=== PATIENT | male | born 1950 | race Caucasian/White ===

== ENCOUNTER 2018-01-31 23:42 | Emergency (ER) | payer OTHER ==
[2018-01-31 23:46] VITALS: TEMP 97.6; BMI 31.5
[2018-01-31] MEDS ORDERED: XANAX PO STA (23:49)
[2018-01-31] MEDS ORDERED: CATAPRES PO STA (23:49)
--- NOTE | 2018-01-31 23:52 | ED.PDOC ---
General ED Provider: Dr. BLAKE ELDER Chief Complaint: Hypertension Stated Complaint: BP been elevated since noon, went above 200 systolic,so came for the evaluation Time Seen by Physician: 23:50 Mode of Arrival: Walk-In Information Source: Patient, Family Primary Care Provider: CLAUDETTE LARKIN Nursing and Triage Documentation Reviewed and Agree: Yes Reviewed sepsis parameters & appropriate labs ordered?: No System Inflammatory Response Syndrome: Not Applicable Sepsis Protocol: For patient's 13 years and over: Temp is 96.8 and below OR 101 and greater Pulse >90 BPM Resp >20/minute Acutely Altered Mental Status Are patient's symptoms suggestive of a new infection, such as: -Pneumonia -Skin, Soft Tissue -Endocarditis -UTI -Bone, Joint Infection -Implantable Device -Acute Abdominal Infection -Wound Infection -Meningitis -Blood Stream Catheter Infection -Unknown Cardiovascular Complaint Exam - Hypertension Complaint/Exam Symptoms Are: Still present Timing: Constant Aggravating: Reports: None Alleviating: Reports: None Associated Signs and Symptoms: Reports: Headache, Dizziness. Denies: Chest pain , Vision changes, Anxiety, Recent stress, Numbness, Tingling, Weakness, Short of air, Swelling Related History: Reports: Similar episode Related Surgical History: Reports: None Cardiac Risk Factors: Reports: Hypertension Recent Change in Medications: No A/V [place]: No Papilledema Present: No JVD Present: No Carotid Bruit Present: No Femoral Pulses Bounding: No Differential Diagnoses: Hypertension Quality Indicator For Non-Traumatic Chest Pain/Syncope: EKG Performed Review of Systems - Review Of Systems Constitutional: Reports: No symptoms Eyes: Reports: No symptoms Ears, Nose, Mouth, Throat: Reports: No symptoms Respiratory: Reports: No symptoms Cardiac: Reports: No symptoms GI: Reports: No symptoms : Reports: No symptoms Musculoskeletal: Reports: No symptoms Skin: Reports: No symptoms Neurological: Reports: Headache Endocrine: Reports: No symptoms Hematologic/Lymphatic: Reports: No symptoms All Other Systems: Reviewed and Negative Past Medical History - Past Medical History Previously Healthy: Yes Endocrine: Reports: None Cardiovascular: Reports: Hypertension (did not take medications) Respiratory: Reports: None Hematological: Reports: None Gastrointestinal: Reports: None Genitourinary: Reports: None Neuro/Psych: Reports: None Musculoskeletal: Reports: Back Pain Cancer: Reports: None - Surgical History General Surgical History: Reports: None - Family History Family History: Reports: None - Social History Smoking Status: Former smoker Hx Substance Use: No Alcohol Screening: None - Immunizations Tetanus Shot up to Date: Yes Physical Exam - Physical Exam Appearance: Well-appearing, No pain distress, Well-nourished Eyes: TEODORO, EOMI, Conjunctiva clear ENT: Ears normal, Nose normal, Oropharynx normal Respiratory: Airway patent, Breath sounds clear, Breath sounds equal, Respirations nonlabored Cardiovascular: RRR, Pulses normal, No rub, No murmur GI/: Soft, Nontender, No masses, Bowel sounds normal, No Organomegaly Musculoskeletal: Normal strength, ROM intact, No edema, No calf tenderness Skin: Warm, Dry, Normal color Neurological: Sensation intact, Motor intact, Reflexes intact, Cranial nerves intact, Alert, Oriented Psychiatric: Affect appropriate, Mood appropriate Critical Care Note - Critical Care Note Total Time (mins): 30 Course - Course Hematology/Chemistry: 02/01/18 00:00 02/01/18 00:00 Orders, Labs, Meds: Lab Review 02/01/18 02/01/18 02/01/18 00:00 00:00 00:00 WBC 6.76 RBC 4.06 L Hgb 12.8 L Hct 36.1 L MCV 88.9 MCH 31.5 H MCHC 35.5 H RDW Coeff of Genoveva 12.4 Plt Count 209 Immature Gran % (Auto) 0.3 Neut % (Auto) 69.4 Lymph % (Auto) 19.7 [place] % (Auto) 7.5 Eos % (Auto) 2.5 Baso % (Auto) 0.6 Immature Gran # (Auto) 0.0 Neut # (Auto) 4.7 Lymph # (Auto) 1.3 [place] # (Auto) 0.5 Eos # (Auto) 0.2 Baso # (Auto) 0.0 Sodium 138 Potassium 4.3 Chloride 101 Carbon Dioxide 23 Anion Gap 18.3 BUN 20 H Creatinine 1.04 Estimated GFR (MDRD) 71.00 BUN/Creatinine Ratio 19.23 Glucose 130 H Calcium 9.6 Total Bilirubin 0.5 AST 22 ALT 30 Alkaline Phosphatase 62 Total Creatine Kinase 193 CK-MB (CK-2) 3.4 CK-MB (CK-2) % 1.16198 Troponin I 0.0100 B-Natriuretic Peptide 75 Total Protein 7.2 Albumin 3.7 Globulin 3.5 Albumin/Globulin Ratio 1.06 Orders Category Date Time Status EKG-(ED ONLY) Stat CARDIO 01/31/18 23:49 Completed B-TYPE NATRIURETIC PEPTIDE Stat LAB 01/31/18 23:49 Completed CBC W/ AUTO DIFF Stat LAB 01/31/18 23:48 Completed COMPREHENSIVE METABOLIC PANEL Stat LAB 01/31/18 23:49 Completed CREATINE KINASE Stat LAB 01/31/18 23:49 Completed TROPONIN I Stat LAB 01/31/18 23:49 Completed Alprazolam [Xanax] MEDS 01/31/18 23:55 Discontinued 0.5 mg .ROUTE .STK-MED ONE Alprazolam [Xanax] MEDS 01/31/18 23:49 Discontinued 0.5 mg PO ONCE STA Clonidine HCl [Catapres] MEDS 01/31/18 23:49 Discontinued 0.2 mg PO ONCE STA CHEST, 2 VIEWS PA & LAT Stat RADS 01/31/18 23:[address] HEAD W/O CONTRAST Stat RADS 01/31/18 23:49 Completed Medications Discontinued Medications Generic Name Dose Route Start Last Admin Trade Name Kaliq PRN Reason Stop Dose Admin Alprazolam 0.5 mg 01/31/18 23:49 01/31/18 23:58 Xanax PO 01/31/18 23:50 Not Given ONCE STA Clonidine 0.2 mg 01/31/18 23:49 01/31/18 23:57 Catapres PO 01/31/18 23:50 0.2 mg ONCE STA Administration Vital Signs: Temp Pulse Resp BP Pulse Ox 02/01/18 00:52 52 L 13 152/86 H 94 L 02/01/18 00:21 51 L 14 178/86 H 95 01/31/18 23:43 97.6 F 65 14 205/93 H 95 ELSY Risk Score ELSY Risk Score: Risk Score Odds of by 30D 0 0.1 (0.1-0.2) 1 0.3 (0.2-0.3) 2 0.4 (0.3-0.5) 3 0.7 (0.6-0.9) 4 1.2 (1.0-1.5) 5 2.2 (1.9-2.6) 6 3.0 (2.5-3.6) 7 4.8 (3.8-6.1) Departure - Departure Time of Disposition: 23:53 Disposition: HOME SELF-CARE Discharge Problem: Hypertension Qualifiers: Hypertension type: essential hypertension Qualified Code(s): I10 - Essential ( primary) hypertension Instructions: Hypertension (ED) Condition: Stable Pt referred to PMD for follow-up: Yes IPMP verified?: No Additional Instructions: keep checking BP f/u with PMD in 1-2 days Allergies/Adverse Reactions: Allergies No Known Allergies Allergy (Unverified 01/31/18 23:46) Home Medications: Ambulatory Orders Gabapentin [Neurontin] 300 mg PO TID 11/04/15 Aspirin/Dipyridamole 25/200 mg [Aggrenox Capsule] 1 each PO BID 02/01/18 Baclofen 10 mg PO TID 02/01/18 Cholecalciferol (Vitamin D3) [Vitamin D] 800 mg PO BEDTIME 02/01/18 Clonazepam 0.5 mg PO TID 02/01/18 Diclofenac Sodium 75 mg PO BID 02/01/18 Divalproex Sodium 500 mg PO BEDTIME 02/01/18 Hydrocodone/Acetaminophen [Hydrocodone-Acetamin 5-325 mg] 1 each PO QID PRN Pravastatin Sodium 20 mg PO BEDTIME 02/01/18 Risperidone 4 mg PO BEDTIME 02/01/18 Sertraline HCl [Zoloft] 200 mg PO BEDTIME 02/01/18 Trazodone HCl 200 mg PO BEDTIME 02/01/18 Morphine Sulfate [Ms Contin] 30 mg PO Q12HR 02/02/18 Disposition Discussed With: Patient, Family
[2018-01-31] MEDS ORDERED: XANAX ONE (23:55)
[2018-02-01 00:53] VITALS: BP 152/86
--- NOTE | 2018-02-01 09:03 | DI ---
EXAM: PA and lateral views of the chest. HISTORY: Cough. FINDINGS: There is surgical hardware in the right shoulder. The cardiac silhouette and pulmonary vasc ulature are within normal limits. The costophrenic angles are clear. There is minimal left basilar a telectasis and/or pneumonia. Impression: Minimal left basilar atelectasis and/or pneumonia.
--- NOTE | 2018-02-01 09:03 | CT ---
EXAM: CT of the head without contrast. HISTORY: Headache. PROCEDURE: Contiguous axial CT images of the head without contrast with coronal and sagittal reforma ts. FINDINGS: There is diffuse cerebral atrophy. The ventricles and basal cisterns are normal in size an d configuration. No evidence of mass or midline shift. No intracranial hemorrhage or evidence of la rge vessel infarct. No extra-axial fluid collection. There are minimal chronic small vessel ischemic changes in the white matter. There is minimal mucosal thickening in the paranasal sinuses. The mast oid air cells are well-aerated and normal in appearance. Impression: No intracranial hemorrhage or evidence of large vessel infarct. Mild diffuse cerebral atrophy. Minimal chronic small vessel ischemic changes. Paranasal sinusitis.
[2018-02-01 15:07] VITALS: BMI 31.4
== END 2018-02-01 01:00 | disposition home or self-care (01) ==
LOC: ED 23:42
DX: I10 Essential (primary) hypertension (principal); R51 Headache; R42 Dizziness and giddiness; Z79.899 Other long term (current) drug therapy
CPT/HCPCS: 36415; 80053; 82550; 82553; 83880; 84484; 85025; 93005; 93010; 99283

== ENCOUNTER 2018-02-01 14:22 | Inpatient (IN) | payer OTHER ==
[2018-02-01 15:07] VITALS: BMI 31.4
[2018-02-01] MEDS: SODIUM CHLORIDE 1,000 ML IV SCH (15:30)
--- NOTE | 2018-02-01 15:37 | CT ---
Exam: CT of the abdomen pelvis without intravenous contrast. Comparison: None available. Reason for exam: Diarrhea, abdominal pain. FINDINGS: No pleural effusion, or focal consolidation in the partially imaged lung bases. Image interpretation is limited by the lack of intravenous contrast administration. The liver, spleen, adrenal glands, and gallbladder appear grossly unremarkable within limitations of a noncontrasted study. There is moderate to marked fatty infiltration of the pancreas. There is a 1.5 cm right inferior renal pole hypodensity incompletely evaluated on this examination. No hydronephrosis, hydroureter, or nephrolithiasis in either kidney. The bladder appears grossly unremarkable. No focal small bowel dilatation or transition point. The appendix is unremarkable. No intra-abdominal free air or pelvic free fluid. Scattered diverticular disease is seen in the descending and rectosigmoid colon. Degenerative disease is seen in the lumbosacral spine without suspicious appearing osteoblastic or os teolytic lesions. There is a small only fat containing periumbilical hernia. Impression: 1. No acute imaging findings are seen within the abdomen or pelvis. 2. Fatty infiltration of the pancreas. 3. Likely right renal cyst. Ultrasound may be performed for further characterization. 4. Diverticulosis without evidence of diverticulitis
[2018-02-01] MEDS ORDERED: RISPERIDONE 4 MG PO SCH (21:00)
[2018-02-01] MEDS ORDERED: NON-FORMULARY MEDICATION (Diclofenac Sodium [Diclofenac Sodium] 75 MG) PO SCH (21:00)
[2018-02-01] MEDS ORDERED: NON-FORMULARY MEDICATION (Sertraline Hcl [Zoloft] 200 MG) PO SCH (21:00)
[2018-02-01] MEDS ORDERED: NON-FORMULARY MEDICATION (Trazodone Hcl [Trazodone Hcl] 200 MG) PO SCH (21:00)
[2018-02-01] MEDS ORDERED: MORPHINE SULFATE 30 MG PO SCH (21:00)
[2018-02-01] MEDS ORDERED: DEPAKOTE ONE (22:01)
[2018-02-01] MEDS ORDERED: ZOLOFT ONE (22:02)
[2018-02-01] MEDS ORDERED: RISPERDAL ONE (22:02)
[2018-02-01] MEDS ORDERED: PRAVACHOL ONE (22:02)
[2018-02-01] MEDS ORDERED: MORPHINE SULFATE TAB ONE (22:02)
[2018-02-01] MEDS ORDERED: DESYREL ONE (22:02)
[2018-02-01] MEDS: NEURONTIN PO SCH (22:16)
[2018-02-01] MEDS: KLONOPIN PO SCH (22:17)
[2018-02-01] MEDS: DEPAKOTE PO SCH (22:18)
[2018-02-01] MEDS: PRAVACHOL PO SCH (22:20)
[2018-02-01] MEDS: DUONEB NEB SCH (22:23)
[2018-02-01] MEDS ORDERED: MOTRIN PO STA (22:29)
[2018-02-02] MEDS: SODIUM CHLORIDE 1,000 ML IV SCH ×4 (00:57→16:11)
[2018-02-02] MEDS: DUONEB NEB SCH ×3 (05:00→22:55)
[2018-02-02] MEDS: AGGRENOX CAPSULE PO SCH ×3 (07:04→21:08)
[2018-02-02] MEDS: VITAMIN D PO SCH ×2 (07:04→21:07)
[2018-02-02] MEDS ORDERED: NON-FORMULARY MEDICATION (Morphine Sulfate 30 MG) PO SCH (09:00)
[2018-02-02] MEDS: DICLOFENAC SODIUM PO SCH ×2 (09:52→17:28)
[2018-02-02] MEDS: NEURONTIN PO SCH ×3 (09:53→21:07)
[2018-02-02] MEDS: KLONOPIN PO SCH ×3 (09:53→21:18)
[2018-02-02] MEDS: MS CONTIN PO SCH ×2 (09:53→21:18)
[2018-02-02] MEDS: NORCO 5-325 PO PRN ×3 (10:00→21:17)
[2018-02-02] MEDS ORDERED: RISPERDAL PO SCH (21:00)
[2018-02-02] MEDS ORDERED: DESYREL PO SCH (21:00)
[2018-02-02] MEDS ORDERED: ZOLOFT PO SCH (21:00)
[2018-02-02] MEDS: DEPAKOTE PO SCH (21:07)
[2018-02-02] MEDS: PRAVACHOL PO SCH (21:08)
[2018-02-03] MEDS: SODIUM CHLORIDE 1,000 ML IV SCH (00:43)
[2018-02-03] MEDS: DUONEB NEB SCH (05:05)
[2018-02-03 05:54] VITALS: BP 113/61; TEMP 97.6
[2018-02-03] MEDS: NORCO 5-325 PO PRN (07:45)
[2018-02-03] MEDS: NEURONTIN PO SCH (09:38)
[2018-02-03] MEDS: MS CONTIN PO SCH (09:38)
[2018-02-03] MEDS: AGGRENOX CAPSULE PO SCH (09:38)
[2018-02-03] MEDS: DICLOFENAC SODIUM PO SCH (09:39)
[2018-02-03] MEDS: KLONOPIN PO SCH (09:39)
--- NOTE | 2018-02-15 14:58 | DS ---
DATE OF SERVICE: 02/03/18 FINAL DIAGNOSIS: 1. Dehydration 2. Acute gastroenteritis 3. COPD 4. Hypertension 5. Neuropathy 6. CVA 7. Bipolar disorder 8. Arthritis 9. Chronic back pain 10.Neck pain 11.Diverticulosis 12.Chronic opioid pain dependence DISCHARGE INSTRUCTIONS: Followup with the [facility] within 5-7 days. Resume home medication. Do not take Lisinopril. Continue the rest of the home medications as given. MEDICATIONS AT DISCHARGE: Morphine Aspirin Aggrenox Baclofen Vitamin D Clonazepam Diclofenac Divalproex Neurontin Hydrocodone Pravastatin Risperidone Sertraline Trazodone DIET INSTRUCTIONS: Cardiac and Healthy ACTIVITY: As much as tolerated DISEASE SPECIFIC EDUCATION: Gastroenteritis Dehydration Hypotension been discussed and verbalized understanding. HOSPITAL COURSE: Cash Albert who was initially seen at the [facility] for the uncontrolled blood pressure. The patient was given a dose of Clonidine and started on the Lisinopril went home and started having the diarrhea and took one dose of Lisinopril 40mg, came to the office and blood pressure was low, feeling weak and tired and light headed and funny. At that time the patient was admitted to the hospital because of the light headedness and hypotension. The patient was started on the IV fluids. Blood pressure was 98/54. CT of abdomen and pelvis was done which did not show any acute findings. Blood pressure was on hold. Gradually when the blood pressure came up. Hgb was 12.8, BUN and Creatinine was normal. Anemia profile showed the iron level of 24. CT abdomen and pelvis showed the diverticulosis but not acute diverticulitis. Meanwhile the patient did have one to two episodes of the diarrhea but gradually started feeling better, up and about walking. Did not have any complications during the hospital stay. Blood pressure was still around 103, 115 and 113 over 61 so we strictly suggested not to restart the lisinopril at this time. He will be followed at the [facility] and management plan will be discussed about the blood pressure medication to be taken or not at that time. TIME SPENT: MORE THAN 55 MINUTES. BRIDGER
== END 2018-02-03 10:07 | disposition home or self-care (01) | DRG 392 ==
LOC: MEDSURG A 14:22
PROVIDERS: ADMIT Emergency Medicine; ATTEND Emergency Medicine
DX: K52.9 Noninfective gastroenteritis and colitis, unspecified (principal); I95.9 Hypotension, unspecified; I10 Essential (primary) hypertension; R51 Headache; R42 Dizziness and giddiness; E86.0 Dehydration; J44.9 Chronic obstructive pulmonary disease, unspecified; G62.9 Polyneuropathy, unspecified; F31.9 Bipolar disorder, unspecified; M19.90 Unspecified osteoarthritis, unspecified site; G89.29 Other chronic pain; M54.5 Low back pain; M54.2 Cervicalgia; K57.30 Diverticulosis of large intestine without perforation or abscess without bleeding; Z79.891 Long term (current) use of opiate analgesic; Z79.899 Other long term (current) drug therapy; Z86.73 Personal history of transient ischemic attack (TIA), and cerebral infarction without residual deficits
CPT/HCPCS: 36415; 80053; 80164; 81001; 82272; 82550; 82553; 82607; 82728; 82746; 83540; 83550; 83880; 84466; 84484; 85025; 85045; 93005; 93010; 94640; 97802; 99283

== ENCOUNTER 2018-03-03 10:53 | Inpatient (IN) | payer OTHER ==
[2018-03-03 10:57] VITALS: BMI 32.3
--- NOTE | 2018-03-03 12:08 | CT ---
EXAM: CT ABDOMEN AND PELVIS HISTORY: Unable to void TECHNIQUE: CT abdomen and pelvis without intravenous contrast. Images were reconstructed using 3 mm section thickness. Reformations were prepared. COMPARISON: 02/01/2018 FINDINGS: Kidneys have normal size and cortical volume. Small 13 mm low attenuation lesion of the inferior rig ht renal cortex probably representing a cyst. There is no nephrolithiasis, hydronephrosis or perinep hric fat stranding. Ureters are clear and urinary bladder decompressed. There is no prostate enlarg ement. The visualized urethral area is grossly unremarkable. Within limits of this unenhanced exam, the liver appeared normal. Splenic calcifications noted. Gal lbladder is within normal limits. There is significant fatty replacement of the pancreas. No adrena l nodule. Mild to moderate atherosclerotic disease. No aneurysmal caliber of the aorta. Stomach is decompressed. Normal appendix. A few distal colon diverticula. Nonobstructive bowel gas pattern. No ascites. Tiny fatty umbilical hernia with a transverse neck of 1 cm likely of no clinical signific ance. The bones reveal early facet arthropathy in the lower spine. There is mild infiltrate in the right lung base versus less likely scarring. No pneumoperitoneum. IMPRESSION: 1. No etiology for the patient's symptoms was found, see first paragraph of report. 2. Probable mild pneumonia in the right lung base. 3. Significant fatty replacement of the pancreas. 4. Atherosclerotic disease. 5. Subtle diverticulosis of the distal colon.
--- NOTE | 2018-03-03 12:31 | ED.PDOC ---
General ED Provider: Dr. AC HAIDER Chief Complaint: Urinary Problem Stated Complaint: UNABLE TO VOID Time Seen by Physician: 11:00 (VOIDED IN THE ED BLADDER SCAN 25 CC ONLY NO PAIN ON ARRIVAL) Mode of Arrival: Walk-In Information Source: Patient Exam Limitations: No limitations [facility] Provider[facility] Nursing and Triage Documentation Reviewed and Agree: Yes Reviewed sepsis parameters & appropriate labs ordered?: No System Inflammatory Response Syndrome: Not Applicable Sepsis Protocol: For patient's 13 years and over: Temp is 96.8 and below OR 101 and greater Pulse >90 BPM Resp >20/minute Acutely Altered Mental Status Are patient's symptoms suggestive of a new infection, such as: -Pneumonia -Skin, Soft Tissue -Endocarditis -UTI -Bone, Joint Infection -Implantable Device -Acute Abdominal Infection -Wound Infection -Meningitis -Blood Stream Catheter Infection -Unknown System Inflammatory Response Syndrome: Not Applicable Complaint Exam - Complaint/Exam Patient Complains of: Denies: Scrotal pain, Scrotal swelling (UNABLE TO VOID), Groin pain, Dysuria Onset/Duration: 12 HRS Symptoms Are: Resolved Timing: Intermittent Initial Severity: Mild Current Severity: Mild Location of Pain: Reports: None Aggravating: Reports: Voiding (UNABLE) Alleviating: Reports: None Associated Signs and Symptoms: Denies: Diaphoresis, Back pain, Fever, Hematuria , Dysuria, Constipation, Blood in stool, Rectal pain, Appetite change, Nausea, Vomiting, Penile swelling, Penile discharge, Decreased urine output, Increased urine frequency, Increased thirst, Decreased activity, Lethargy, Scrotal pain, Scrotal swelling, Abdominal Pain Last Voided: 12 HRS AGO Testicular Torsion Risk Factors: Reports: None Surgical Obstruction Risk Factors: Reports: None Related Surgical History: Reports: None Abdominal Findings: Present: None Review of Systems - Review Of Systems Constitutional: Reports: No symptoms Eyes: Reports: No symptoms Ears, Nose, Mouth, Throat: Reports: No symptoms Respiratory: Reports: Cough Cardiac: Reports: No symptoms GI: Reports: No symptoms : Reports: Other (UMABLE TO VOID) Musculoskeletal: Reports: No symptoms Skin: Reports: No symptoms Neurological: Reports: No symptoms Endocrine: Reports: No symptoms Hematologic/Lymphatic: Reports: No symptoms All Other Systems: Reviewed and Negative Past Medical History - Past Medical History Previously Healthy: Yes Endocrine: Reports: None Cardiovascular: Reports: Hypertension (did not take medications) Respiratory: Reports: None Hematological: Reports: None Gastrointestinal: Reports: None Genitourinary: Reports: None Neuro/Psych: Reports: None Musculoskeletal: Reports: Back Pain Cancer: Reports: None - Surgical History General Surgical History: Reports: None - Family History Family History: Reports: None - Social History Smoking Status: Former smoker Hx Substance Use: No Alcohol Screening: Occasionally - Immunizations Tetanus Shot up to Date: Yes Physical Exam - Physical Exam Appearance: Well-appearing, No pain distress, Well-nourished Eyes: TEODORO, EOMI, Conjunctiva clear ENT: Ears normal, Nose normal, Oropharynx normal Respiratory: Airway patent, Breath sounds clear, Breath sounds equal, Respirations nonlabored Cardiovascular: RRR, Pulses normal, No rub, No murmur GI/: Soft, Nontender, No masses, Bowel sounds normal, No Organomegaly Musculoskeletal: Normal strength, ROM intact, No edema, No calf tenderness Skin: Warm, Dry, Normal color Neurological: Sensation intact, Motor intact, Reflexes intact, Cranial nerves intact, Alert, Oriented Psychiatric: Affect appropriate, Mood appropriate Interpretation - Radiology Interpretation Radiology Interpretation By: Radiologist Radiology Results: Positive (RIGHT LUNG PNEUMONIA) Physician Notification - Case Discussed Physician Notified: PMD Time of Notification: 12:33 Admit To: Inpatient Critical Care Note - Critical Care Note Total Time (mins): 0 Course - Course Hematology/Chemistry: 03/03/18 11:15 03/03/18 11:15 Orders, Labs, Meds: Lab Review 03/03/18 03/03/18 03/03/18 11:15 11:15 11:15 WBC 8.49 RBC 4.00 L Hgb 12.4 L Hct 36.7 L MCV 91.8 MCH 31.0 MCHC 33.8 RDW Coeff of Genoveva 12.3 Plt Count 197 Immature Gran % (Auto) 0.5 Neut % (Auto) 66.7 Lymph % (Auto) 20.7 [place] % (Auto) 9.9 Eos % (Auto) 2.0 Baso % (Auto) 0.2 Immature Gran # (Auto) 0.0 Neut # (Auto) 5.7 Lymph # (Auto) 1.8 [place] # (Auto) 0.8 Eos # (Auto) 0.2 Baso # (Auto) 0.0 Sodium 139 Potassium 4.4 Chloride 104 Carbon Dioxide 25 Anion Gap 14.4 BUN 13 Creatinine 0.91 Estimated GFR (MDRD) 83.00 BUN/Creatinine Ratio 14.28 Glucose 96 Calcium 9.2 Total Bilirubin 0.4 AST 14 L ALT 20 Alkaline Phosphatase 55 L Total Protein 6.8 Albumin 3.5 Globulin 3.3 Albumin/Globulin Ratio 1.06 Urine Color Yellow Urine Clarity Clear Urine pH 5.5 Ur Specific [place] >=1.030 Urine Protein Trace Urine Glucose (UA) Negative Urine Ketones 1+ Urine Blood Negative Urine Nitrite Negative Urine Bilirubin 1+ Urine Urobilinogen 1.0 Ur Leukocyte Esterase Negative Ur Squamous Epith Cells Not present Urine Mucus 3+ Orders Category Date Time Status BLOOD CULTURE (ED ONLY) Stat LAB 03/03/18 Ordered CBC W/ AUTO DIFF Stat LAB 03/03/18 11:17 Ordered COMPREHENSIVE METABOLIC PANEL Stat LAB 03/03/18 11:17 Ordered PROCALCITONIN Stat LAB 03/03/18 Ordered PSA [PROSTATE SPECIFIC ANTIGEN SCRN] Stat LAB 03/03/18 11:20 Ordered UA [URINALYSIS C & S IF INDICATED] Stat LAB 03/03/18 11:[address] ABD/PEL WO RENAL STONE PROT Stat RADS 03/03/18 11:17 Ordered Vital Signs: Temp Pulse Resp BP Pulse Ox 03/03/18 10:53 98.2 F 70 18 108/71 92 L Departure - Departure Time of Disposition: 12:33 Disposition: ADMITTED INPATIENT Discharge Problem: Urinary symptoms Pneumonia Qualifiers: Pneumonia type: due to unspecified organism Laterality: right Instructions: Pneumonia (ED) Condition: Good Pt referred to PMD for follow-up: Yes IPMP verified?: No Additional Instructions: Please call your Family Physician as soon as possible to schedule a follow-up appointment. Allergies/Adverse Reactions: Allergies No Known Allergies Allergy (Unverified 01/31/18 23:46) Home Medications: Ambulatory Orders Gabapentin [Neurontin] 300 mg PO TID 11/04/15 Aspirin/Dipyridamole 25/200 mg [Aggrenox Capsule] 1 each PO BID 02/01/18 Baclofen 10 mg PO TID 02/01/18 Cholecalciferol (Vitamin D3) [Vitamin D] 800 mg PO BEDTIME 02/01/18 Clonazepam 0.5 mg PO TID 02/01/18 Diclofenac Sodium 75 mg PO BID 02/01/18 Divalproex Sodium 500 mg PO BEDTIME 02/01/18 Hydrocodone/Acetaminophen [Hydrocodone-Acetamin 5-325 mg] 1 each PO QID PRN Pravastatin Sodium 20 mg PO BEDTIME 02/01/18 Risperidone 4 mg PO BEDTIME 02/01/18 Sertraline HCl [Zoloft] 200 mg PO BEDTIME 02/01/18 Trazodone HCl 200 mg PO BEDTIME 02/01/18 Morphine Sulfate [Ms Contin] 30 mg PO Q12HR 02/02/18 Lisinopril 2.5 mg PO DAILY 03/03/18 Disposition Discussed With: Patient
[2018-03-03] MEDS ORDERED: ROCEPHIN 1 GM in SODIUM CHLORIDE 50 ML IV STA (13:34)
[2018-03-03] MEDS ORDERED: ROCEPHIN ONE (13:53)
[2018-03-03] MEDS: SODIUM CHLORIDE 1,000 ML IV SCH (14:16)
[2018-03-03] MEDS: FERROUS SULFATE PO SCH ×2 (14:56→21:28)
[2018-03-03] MEDS: NORCO 5-325 PO PRN ×2 (14:56→22:57)
[2018-03-03] MEDS: BACLOFEN PO SCH ×2 (14:56→21:28)
[2018-03-03] MEDS: KLONOPIN PO SCH ×2 (14:56→21:28)
[2018-03-03] MEDS: NEURONTIN PO SCH ×2 (14:57→21:28)
[2018-03-03] MEDS ORDERED: NON-FORMULARY MEDICATION (Ferrous Sulfate [Ferrous Sulfate] 325 MG) PO SCH (15:00)
[2018-03-03] MEDS: DICLOFENAC SODIUM PO SCH (17:07)
[2018-03-03] MEDS ORDERED: PREDNISONE PO SCH (21:00)
[2018-03-03] MEDS ORDERED: NON-FORMULARY MEDICATION (Diclofenac Sodium [Diclofenac Sodium] 75 MG) PO SCH (21:00)
[2018-03-03] MEDS ORDERED: NON-FORMULARY MEDICATION (Morphine Sulfate 30 MG) PO SCH (21:00)
[2018-03-03] MEDS: DEPAKOTE PO SCH (21:28)
[2018-03-03] MEDS: PRAVACHOL PO SCH (21:28)
[2018-03-03] MEDS: AGGRENOX CAPSULE PO SCH (21:28)
[2018-03-03] MEDS: MS CONTIN PO SCH (21:29)
[2018-03-04] MEDS: SODIUM CHLORIDE 1,000 ML IV SCH ×2 (02:56→17:36)
[2018-03-04] MEDS ORDERED: NON-FORMULARY MEDICATION (Lisinopril [Lisinopril] 2.5 MG) PO SCH (09:00)
[2018-03-04] MEDS: MS CONTIN PO SCH ×2 (09:22→20:54)
[2018-03-04] MEDS: ROCEPHIN 1 GM in SODIUM CHLORIDE 50 ML IV SCH (09:22)
[2018-03-04] MEDS: BACLOFEN PO SCH ×3 (09:22→20:53)
[2018-03-04] MEDS: KLONOPIN PO SCH ×3 (09:23→20:59)
[2018-03-04] MEDS: FERROUS SULFATE PO SCH ×3 (09:23→20:54)
[2018-03-04] MEDS: DICLOFENAC SODIUM PO SCH ×2 (09:23→17:36)
[2018-03-04] MEDS: ZESTRIL PO SCH ×2 (09:23→09:25)
[2018-03-04] MEDS: NEURONTIN PO SCH ×3 (09:23→20:54)
[2018-03-04] MEDS: AGGRENOX CAPSULE PO SCH ×2 (09:23→20:54)
[2018-03-04] MEDS: NORCO 5-325 PO PRN ×2 (13:45→20:59)
[2018-03-04] MEDS: DEPAKOTE PO SCH (20:53)
[2018-03-04] MEDS: PRAVACHOL PO SCH (20:54)
[2018-03-04] MEDS ORDERED: ZOLOFT ONE ×2 (20:58→21:02)
[2018-03-04] MEDS ORDERED: NON-FORMULARY MEDICATION (Sertraline Hcl [Zoloft] 200 MG) PO SCH (21:00)
[2018-03-04] MEDS ORDERED: RISPERIDONE 4 MG PO SCH (22:00)
[2018-03-04] MEDS ORDERED: NON-FORMULARY MEDICATION (Trazodone Hcl [Trazodone Hcl] 200 MG) PO SCH (22:00)
[2018-03-04] MEDS ORDERED: FLOMAX PO SCH (22:00)
[2018-03-04] MEDS ORDERED: RISPERDAL ONE (22:05)
[2018-03-04] MEDS ORDERED: DESYREL ONE (22:05)
[2018-03-05] MEDS: SODIUM CHLORIDE 1,000 ML IV SCH (08:58)
[2018-03-05] MEDS: DICLOFENAC SODIUM PO SCH (08:59)
[2018-03-05] MEDS: KLONOPIN PO SCH (08:59)
[2018-03-05] MEDS: FERROUS SULFATE PO SCH (08:59)
[2018-03-05] MEDS: AGGRENOX CAPSULE PO SCH (08:59)
[2018-03-05] MEDS: NORCO 5-325 PO PRN (08:59)
[2018-03-05] MEDS: BACLOFEN PO SCH (08:59)
[2018-03-05] MEDS: MS CONTIN PO SCH (08:59)
[2018-03-05] MEDS: ZESTRIL PO SCH (09:00)
[2018-03-05] MEDS: NEURONTIN PO SCH (09:00)
[2018-03-05] MEDS: ROCEPHIN 1 GM in SODIUM CHLORIDE 50 ML IV SCH (09:00)
[2018-03-05 10:37] VITALS: BP 132/57; TEMP 97.5
[2018-03-05] MEDS ORDERED: RISPERDAL PO SCH (21:00)
[2018-03-05] MEDS ORDERED: ZOLOFT PO SCH (21:00)
[2018-03-05] MEDS ORDERED: FLOMAX PO SCH (21:00)
[2018-03-05] MEDS ORDERED: DESYREL PO SCH (21:00)
--- NOTE | 2018-03-07 08:43 | PN ---
DATE OF SERVICE: 03/05/18 SUBJECTIVE: The patient was gastroenteritis and dehydration,feeling somewhat better. He offers little conversation but he doesn't answer every question. Some abdominal discomfort and pain. REVIEW OF SYSTEMS: CONSTITUTIONAL: No fever, no chills. HEENT: Normal. ENDOCRINE: No weight gain, no weight loss. CVS: No angina symptoms. No CHF symptoms. No palpitations. No atypical chest pain for CAD. No shortness of breath. No PND, no orthopnea. RESPIRATORY: No cough, no hemoptysis. GI: No nausea, no vomiting. No abdominal pain. : No hematuria. No polyuria. MUSCULOSKELETAL: No joint swelling. PSYCHIATRIC: Not anxious. No depression. No suicidal thoughts. No homicidal thoughts. SKIN: Intact. No rash. PHYSICAL EXAMINATION: V/S: Blood pressure 104/65, respiratory rate 18, heart rate 48, temperature 97.4 with saturation 100. HEENT: Normocephalic, atraumatic. Mucosa dry. Pallor positive. No icterus. NECK: Supple. No JVD, no carotid bruit. No lymphadenopathy. LUNGS: Clear to auscultation. No rales or rhonchi. HEART: S1, S2 normal. No S3. No murmur, gallop or regurgitation. ABDOMEN: Soft, discomfort all over. Bowel sounds active. No rigidity. No rebound or guarding. No CVA tenderness. EXTREMITIES: No pedal edema. No clubbing or cyanosis MUSCULOSKELETAL: No joint swelling. NEUROLOGIC: Awake, alert, oriented times three. No focal deficit. LYMPHATIC: No lymph nodes palpable. SKIN: Intact. LABS: WBC 6.19, hgb 10.8, hct 32.0, plt count 195, sodium 139, potassium 4.0, chloride 105, bicarb 24, BUN 20, creatinine 1.04 and glucose 137. ASSESSMENT: 1. Gastroenteritis 2. Dehydration 3. COPD 4. Hypertension 5. Neuropathy 6. CVA 7. Bipolar disorder 8. Arthritis 9. Chronic neck and back pain 10.Diverticulosis PLAN: 1. Continue the DUO NEBS 2. Labs 3. CT abdomen and pelvis 4. IV fluid 5. Telemetry 6. Zofran TIME SPENT: More than 35 minutes MTDD
--- NOTE | 2018-03-17 15:23 | PN ---
DATE OF SERVICE: 03/04/18 SUBJECTIVE: The pateint was admitted for the left sided pneumonia and not able to urinate. CT of the abdomen did not show any outlet obstruction. Dehydration was suspected and he was started on the IV fluids. He started urinating now. Urine did not show any infection. Ketones were positive. REVIEW OF SYSTEMS: CONSTITUTIONAL: No fever, no chills. HEENT: Normal. ENDOCRINE: No weight gain, no weight loss. CVS: No angina symptoms. No CHF symptoms. No palpitations. No atypical chest pain for CAD. No shortness of breath. No PND, no orthopnea. RESPIRATORY: No cough, no hemoptysis. GI: No nausea, no vomiting. No abdominal pain. : No hematuria. No polyuria. MUSCULOSKELETAL: No joint swelling. PSYCHIATRIC: Not anxious. No depression. No suicidal thoughts. No homicidal thoughts. SKIN: Intact. No rash. PHYSICAL EXAMINATION: V/S: Blood pressure 132/82, respiratory rate 18, heart rate 60, temperature 97.5 , saturation 95. HEENT: Normocephalic, atraumatic. Mucosa dry. NECK: Supple. No JVD, no carotid bruit. No lymphadenopathy. LUNGS: Clear to auscultation. No rales or rhonchi. HEART: S1, S2 normal. No S3. No murmur, gallop or regurgitation. ABDOMEN: Soft, nontender. Bowel sounds active. No rigidity. No rebound or guarding. No CVA tenderness. EXTREMITIES: No cyanosis, clubbing or pedal edema. MUSCULOSKELETAL: No joint swelling. NEUROLOGIC: Awake, alert, oriented times three. No focal deficit. LYMPHATIC: No lymph nodes palpable. SKIN: Intact. LABS: White count 4.90, hemoglobin 11.6, hematocrit 34.0, platelet count 189, sodium 140, potassium 4.0, chloride 107, bicarb 24, BUN 11, creatinine 0.85, glucose is 120. ASSESSMENT: 1. INABILITY TO URINATE, MOST LIKELY FROM THE DEHYDRATION 2. LEFT LOWER LOBE PNEUMONIA 3. PROSTATISM 4. HYPERTENSION 5. CEREBRAL VASCULAR ACCIDENT 6. CHRONIC OBSTRUCTIVE PULMONARY DISEASE 7. GERD 8. DJD OF THE SPINE 9. OSTEOARTHRITIS 10. CHRONIC PAIN SYNDROME PLAN: 1. Continue the IV fluids. 2. Flomax 0.4 mg p.o. daily. 3. Daily I & O's. 4. IV fluids at 75 ml per hour. TIME SPENT: More than 35 minutes MTDD
--- NOTE | 2018-03-21 14:44 | DS ---
DATE OF SERVICE: 03/05/18 FINAL DIAGNOSIS: 1. Inability to urinate most likely from the dehydration as there was no outlet obstruction, most likely prostatism. 2. Left lower lobe pneumonia 3. Hypertension 4. Dyslipidemia 5. Osteoarthritis 6. DJD spine 7. History of CVA, no neuro deficits 8. Anxiety DISCHARGE INSTRUCTIONS: Discharge the patient home. Continue the rest of the home medication. MEDICATIONS AT DISCHARGE: Iron pills over the counter MS Contin Aggrenox Baclofen Vitamin B Clonazepam Diclofenac Divalproex Neurontin Hydrocodone Lisinopril Pravastatin Risperdal Sertraline Trazodone NEW PRESCRIPTIONS: Flomax 0.4mg PO daily DIET INSTRUCTIONS: Cardiac and healthy ACTIVITY: As much as tolerated DISEASE SPECIFIC EDUCATION: Urinary output obstruction Prostatism been discussed and verbalized understanding. Flomax medication and risk of orthostatic hypertension been discussed. and verbalized understanding. HOSPITAL COURSE: Cash Albert who is 67 year old male came to the office complaining that he is not able to void for two days. Sent to the emergency room and CT of abdomen and pelvic did not have any outlet obstruction, bladder scan showed the 20ml which he did urine. Urine was positive for the ketones. CAT scan of the abdomen did show the left lower lobe pneumonia. At that time the patient being admitted to the IV fluids, Rocephin 1 gram daily and continue the home medications. IV fluids given. With the given IV fluids the patient started urinating. Expected maybe the prostate is doing the problem and started on the Flomax. Up and about walking and did not have any problems. Not been dizzy. Hgb and hct been stable. As the patient was doing good and urine output has resumed on the patient and the patient was doing fine the patient was discharged home today. TIME SPENT: MORE THAN 65 MINUTES MTDD
== END 2018-03-05 11:39 | disposition home or self-care (01) | DRG 725 ==
LOC: ED 10:53 → MEDSURG B 12:54
PROVIDERS: ADMIT Emergency Medicine; ATTEND Emergency Medicine
DX: N40.0 Benign prostatic hyperplasia without lower urinary tract symptoms (principal); J18.9 Pneumonia, unspecified organism; R39.198 Other difficulties with micturition; E86.0 Dehydration; I10 Essential (primary) hypertension; J44.9 Chronic obstructive pulmonary disease, unspecified; K21.9 Gastro-esophageal reflux disease without esophagitis; G89.4 Chronic pain syndrome; E78.5 Hyperlipidemia, unspecified; F41.9 Anxiety disorder, unspecified; M19.90 Unspecified osteoarthritis, unspecified site; M47.9 Spondylosis, unspecified; Z86.73 Personal history of transient ischemic attack (TIA), and cerebral infarction without residual deficits; Z79.891 Long term (current) use of opiate analgesic; Z79.899 Other long term (current) drug therapy
CPT/HCPCS: 36415; 74176; 80053; 81001; 84145; 85025; 87040; 96365; 99284

== ENCOUNTER 2018-04-26 10:43 | Outpatient (POV) | payer OTHER | END 2018-04-26 17:00 | LOC: OUTPT 10:43 | PROVIDERS: ATTEND Otolaryngology | DX: H91.90 Unspecified hearing loss, unspecified ear (principal) | CPT/HCPCS: 92557 ==

== ENCOUNTER 2019-01-24 20:22 | Emergency (ER) | payer OTHER ==
[2019-01-24 20:28] VITALS: BP 182/78; TEMP 102.2; BMI 31.2
--- NOTE | 2019-01-24 21:02 | ED.PDOC ---
General ED Provider: Dr. ZOHRA VEGA-ER Chief Complaint: Respiratory Complaint Stated Complaint: my sinuses are draining--and i am coughing Time Seen by Physician: 21:00 Mode of Arrival: Walk-In Information Source: Patient Exam Limitations: No limitations Primary Care Provider: GABI MTZ Nursing and Triage Documentation Reviewed and Agree: Yes Does patient meet sepsis criteria?: No System Inflammatory Response Syndrome: Not Applicable Sepsis Protocol: For patient's 13 years and over: Temp is 96.8 and below OR 101 and greater Pulse >90 BPM Resp >20/minute Acutely Altered Mental Status Are patient's symptoms suggestive of a new infection, such as: -Pneumonia -Skin, Soft Tissue -Endocarditis -UTI -Bone, Joint Infection -Implantable Device -Acute Abdominal Infection -Wound Infection -Meningitis -Blood Stream Catheter Infection -Unknown Respiratory Complaint Exam - Respiratory Complaint/Exam Onset/Duration: 3 days Symptoms Are: Still present Timing: Constant Initial Severity: Mild Current Severity: Moderate Location: Nose Character: Reports: Productive cough Aggravating: Reports: URI Alleviating: Reports: None Associated Signs and Symptoms: Reports: URI, Nasal congestion, Sinus discomfort. Denies: Rapid breathing, Dyspnea, Fever, Chills, Chest pain, Pleuritic chest pain, Wheezing, Hemoptysis, Dizziness, Calf pain, Calf swelling , Edema History of Healthcare-Acquired Pneumonia: No Home Oxygen Use: No Recent Stress Test: No Recent Echo/LV Function: No Current Antibiotic Use: No Current Asthma Medication Use: No Respiratory Distress: None Inadequate Respiratory Effort: No Dysphagia Present: No Stridor Present: No JVD Present: No Accessory Muscle Use: No Retractions: Not Present Diminished Breath Sounds: No Sinus Tenderness: Maxillary Grunting Respirations: No Kussmaul Respirations: No Differential Diagnoses: Bronchitis, Sinusitis Review of Systems - Review Of Systems Constitutional: Reports: No symptoms Eyes: Reports: No symptoms Ears, Nose, Mouth, Throat: Reports: Nose discharge Respiratory: Reports: Cough Cardiac: Reports: No symptoms GI: Reports: No symptoms : Reports: No symptoms Musculoskeletal: Reports: No symptoms Skin: Reports: No symptoms Neurological: Reports: No symptoms Endocrine: Reports: No symptoms Hematologic/Lymphatic: Reports: No symptoms All Other Systems: Reviewed and Negative Past Medical History - Past Medical History Previously Healthy: Yes Endocrine: Reports: None Cardiovascular: Reports: Hypertension (did not take medications) Respiratory: Reports: None Hematological: Reports: None Gastrointestinal: Reports: None Genitourinary: Reports: None Neuro/Psych: Reports: CVA, Anxiety, Depression, Other (insomina, paranoia ) Musculoskeletal: Reports: Back Pain (with spasms.), Joint Pain (neck ) Cancer: Reports: None - Surgical History General Surgical History: Reports: None - Family History Family History: Reports: None - Social History Smoking Status: Former smoker Hx Substance Use: No Alcohol Screening: None Physical Exam - Physical Exam Appearance: Well-appearing, No pain distress, Well-nourished Eyes: TEODORO, EOMI, Conjunctiva clear ENT: Rhinorrhea Neck: Supple Respiratory: Airway patent Cardiovascular: RRR, Pulses normal, No rub, No murmur GI/: Soft, Nontender, No masses, Bowel sounds normal, No Organomegaly Musculoskeletal: Normal strength, ROM intact, No edema, No calf tenderness Skin: Warm, Dry, Normal color Neurological: Sensation intact, Motor intact, Reflexes intact, Cranial nerves intact, Alert, Oriented Psychiatric: Affect appropriate Critical Care Note - Critical Care Note Total Time (mins): 0 Course - Course Orders, Labs, Meds: Lab Review 01/24/19 20:38 Influ A Molecular Assay Negative by naat Influ B Molecular Assay Negative by naat Orders Category Date Time Status FLU A/B MOLECULAR Stat LAB 01/24/19 20:38 Completed MOLECULAR GROUP A STREP Stat LAB 01/24/19 20:38 Completed Vital Signs: Temp Pulse Resp BP Pulse Ox 01/24/19 20:22 102.2 F H 89 20 182/78 H 94 L Departure - Departure Time of Disposition: 21:02 Disposition: HOME SELF-CARE Discharge Problem: Sinusitis nasal Qualifiers: Sinusitis location: unspecified location Chronicity: acute Recurrence: non- recurrent Qualified Code(s): J01.90 - Acute sinusitis, unspecified Instructions: Rhinosinusitis (ED) Condition: Good Pt referred to PMD for follow-up: Yes IPMP verified?: No Additional Instructions: augmentin 875mg bid x 10 days , medrol dose pack---tessalon perles 200mg tid prn cough 30---recheck in 72hrs if not improved Allergies/Adverse Reactions: Allergies No Known Allergies Allergy (Verified 01/24/19 20:28) Home Medications: Ambulatory Orders Gabapentin [Neurontin] 300 mg PO TID 11/04/15 Aspirin/Dipyridamole 25/200 mg [Aggrenox Capsule] 1 each PO BID 02/01/18 Baclofen 10 mg PO TID 02/01/18 Sertraline HCl [Zoloft] 200 mg PO BEDTIME 02/01/18 Trazodone HCl 200 mg PO BEDTIME 02/01/18 Morphine Sulfate [Ms Contin] 30 mg PO Q12HR 02/02/18 Tamsulosin HCl [Flomax] 0.4 mg PO DAILY #10 cap.er.24h 03/05/18 Hydrocodone/Acetaminophen [[place] 5-325 Tablet] 1 tab PO Q6HR PRN 10/07/18 Clonazepam 0.5 mg PO DAILY 10/13/18 Disposition Discussed With: Patient
== END 2019-01-24 21:10 | disposition home or self-care (01) ==
LOC: ED 20:22
DX: J01.90 Acute sinusitis, unspecified (principal); I10 Essential (primary) hypertension; Z79.899 Other long term (current) drug therapy
CPT/HCPCS: 87502; 87651; 99283

== ENCOUNTER 2019-06-27 09:17 | Emergency (ER) | payer OTHER ==
[2019-06-27 09:23] VITALS: BP 148/80; TEMP 96.5; BMI 31.8
--- NOTE | 2019-06-27 11:18 | US ---
EXAM: Ultrasound venous Doppler right and left lower extermity HISTORY: Pain, tenderness, swelling lower extremities 3 days COMPARISON: None TECHNIQUE: Venous duplex ultrasound of the right and left lower extremity was performed using color, styles-scale, and Doppler flow imaging. FINDINGS: There is normal color flow and compression of the right and left common femoral, greater s aphenous, profunda femoral, femoral, popliteal, peroneal, and posterior tibial veins without evidence of intraluminal thrombus. Anterior tibial veins not visualized. IMPRESSION: No right or left lower extremity deep venous thrombosis at the visualized levels.
--- NOTE | 2019-06-27 11:54 | CT ---
EXAM: CT chest without contrast HISTORY: Cough COMPARISON: None TECHNIQUE: CT chest performed without intravenous contrast. Coronal and sagittal reformatted images obtained. FINDINGS: Thoracic inlet unremarkable. Heart normal in size. Coronary calcifications. No pericard ial effusion. Evaluation for lymphadenopathy limited without contrast. No lymphadenopathy identifie d in the chest. Sub centimeter mediastinal lymph nodes present. Calcified left hilar lymph nodes, c onsistent with old granulomatous disease. Aorta normal in caliber. Mild atherosclerosis. No acute abnormalities of the bones. Degenerative change in the spine. Central airway patent. Mild bibasila r atelectasis. No airspace consolidation. No pleural effusion. No pneumothorax. Please refer to s eparate report CT abdomen pelvis regarding findings in the upper abdomen. IMPRESSION: 1. Mild bibasilar atelectasis. No airspace consolidation. 2. Coronary calcifications.
--- NOTE | 2019-06-27 11:58 | CT ---
EXAM: CT ABDOMEN AND PELVIS HISTORY: Shortness of breath and bloating TECHNIQUE: CT abdomen and pelvis without intravenous contrast. Images were reconstructed using 3 mm section thickness. Reformations were prepared. COMPARISON: 10/07/2018 FINDINGS: Diagnostic limitations may exist without including contrast enhanced images. No focal hepatic lesion s are identified. Scattered splenic calcifications are noted. Gallbladder is decompressed. Signifi cant fatty replacement of the pancreas. Adrenal glands appear normal. There is a 14 mm probable cys t of the lower right renal cortex which can be evaluated by ultrasound for further clarification. Th ere is no nephrolithiasis or hydronephrosis. No perinephric fat stranding. Ureters are clear. Mode rate atherosclerotic disease is noted. No gastric abnormality is obvious. The appendix appears normal. There is no bowel obstruction. Mil d distal colon diverticulosis is noted. Urinary bladder appears normal. No prostate enlargement. No abdominal wall is intact. Bones reveal degenerative changes of the lower spine. Lung bases are f ree of acute infiltrate. No pneumoperitoneum. IMPRESSION: 1. Nonobstructive bowel gas pattern. A few distal colon diverticula are present without diverticuli tis. 2. Probable small right renal cyst. 3. Atherosclerotic disease.
--- NOTE | 2019-06-27 13:00 | ED.PDOC ---
General ED Provider: Dr. AC HAIDER Chief Complaint: Extremity Swelling/Pain Stated Complaint: pt's tiny stated that pt has been unale to void. pt has able to voiding small amount this AM . pt has had minor abdominal pain but it had d/c p.t.a. pt's wanted him seen to R/o for renal failure and also be evaluated for chest pain and leg edema. Time Seen by Physician: 09:22 Mode of Arrival: Walk-In Information Source: Patient, Family Exam Limitations: No limitations Primary Care Provider: CLAUDETTE LARKIN Nursing and Triage Documentation Reviewed and Agree: Yes Does patient meet sepsis criteria?: No System Inflammatory Response Syndrome: Not Applicable Sepsis Protocol: For patient's 13 years and over: Temp is 96.8 and below OR 101 and greater Pulse >90 BPM Resp >20/minute Acutely Altered Mental Status Are patient's symptoms suggestive of a new infection, such as: -Pneumonia -Skin, Soft Tissue -Endocarditis -UTI -Bone, Joint Infection -Implantable Device -Acute Abdominal Infection -Wound Infection -Meningitis -Blood Stream Catheter Infection -Unknown Miscellaneous Complaint Exam - Complex/Multi-System Complaint/Exam Onset/Duration: this am Symptoms Are: Still present Episodes Lasting: Hours Initial Severity: Mild Current Severity: Mild Location of Pain: no pain in the E/D Pain Radiates to: N/A Character: N/A Aggravating: N/A Alleviating: N/A Associated Signs and Symptoms: Reports: Weakness (INABILITY TO URINATE, SOME ABDOMINAL PAIN EARLIER NOT IN E/D ), Chest pain (C/O OCCAIONAL INTERMITTENT CHEST PAIN THIS AM 1 DAY AGO EPISODES LASTED A FEW MIN NO RADIATION NO SYNCOPE) Recent Echo/LV Function: No Respiratory Distress: None JVD Present: No Tachypnea Present: No Stridor Present: No Abdominal Findings: Present: Normal findings Glascow Coma Scale (see protocol): 15 Focal Weakness: Present: None Focal Sensory Loss: Present: None Gait: Normal (WALKED IN THE /D ) Gag Reflex Present: Yes Babinski Sign: Negative Right, Negative Left Joint Swelling Present: No In-Dwelling Device Present: No Quality Indicators for Cardiac Chest Pain: EKG in 10min. Quality Indicators for AMI: EKG in 10min. Quality Indicator For Non-Traumatic Chest Pain/Syncope: EKG Performed Review of Systems - Review Of Systems Constitutional: Reports: Malaise, Weakness Eyes: Reports: No symptoms Ears, Nose, Mouth, Throat: Reports: No symptoms Respiratory: Reports: No symptoms Cardiac: Reports: No symptoms GI: Reports: No symptoms : Reports: Other (UNABLE TO URINATE) Musculoskeletal: Reports: No symptoms Skin: Reports: No symptoms Neurological: Reports: No symptoms Endocrine: Reports: No symptoms Hematologic/Lymphatic: Reports: No symptoms All Other Systems: Reviewed and Negative Past Medical History - Past Medical History Previously Healthy: Yes Endocrine: Reports: None Cardiovascular: Reports: Hypertension (did not take medications) Respiratory: Reports: None Hematological: Reports: None Gastrointestinal: Reports: None Genitourinary: Reports: None Neuro/Psych: Reports: CVA, Anxiety, Depression, Other (insomina, paranoia ) Musculoskeletal: Reports: Back Pain (with spasms.), Joint Pain (neck ) Cancer: Reports: None - Surgical History General Surgical History: Reports: Orthopedic (SHOULDER IN THE ). Denies: Appendectomy, Cholecystectomy, Tonsillectomy, CABG, Stent, Heart Cath, Pacemaker, Splenectomy, Back Surgery, Gastric Bypass - Family History Family History: Reports: None - Social History Smoking Status: Former smoker Hx Substance Use: No Alcohol Screening: Occasionally - Immunizations Tetanus Shot up to Date: No Physical Exam - Physical Exam Appearance: Well-appearing, No pain distress, Well-nourished Eyes: TEODORO, EOMI, Conjunctiva clear ENT: Dry mucosa Respiratory: Airway patent, Breath sounds clear, Breath sounds equal, Respirations nonlabored Cardiovascular: RRR, Pulses normal, No rub, No murmur GI/: Soft, Nontender, No masses, Bowel sounds normal, No Organomegaly Musculoskeletal: Normal strength, ROM intact, No edema, No calf tenderness Skin: Warm, Dry, Normal color Neurological: Sensation intact, Motor intact, Reflexes intact, Cranial nerves intact, Alert, Oriented Psychiatric: Affect appropriate, Mood appropriate Physician Notification - Case Discussed Physician Notified: luis LARIOS Time of Notification: 13:29 (TRANSFER NOW) Critical Care Note - Critical Care Note Total Time (mins): 0 Course - Course Hematology/Chemistry: 06/27/19 09:40 06/27/19 09:40 Orders, Labs, Meds: Lab Review 06/27/19 06/27/19 06/27/19 09:40 09:40 09:40 WBC 4.25 RBC 3.78 L Hgb 11.9 L Hct 35.9 L MCV 95.0 H MCH 31.5 H MCHC 33.1 RDW Coeff of Genove[place] 12.7 Plt Count 210 Immature Gran % (Auto) 0.5 Neut % (Auto) 49.1 Lymph % (Auto) 31.1 [place] % (Auto) 11.8 H Eos % (Auto) 6.8 Baso % (Auto) 0.7 Immature Gran # (Auto) 0.0 Neut # (Auto) 2.1 Lymph # (Auto) 1.3 [place] # (Auto) 0.5 Eos # (Auto) 0.3 Baso # (Auto) 0.0 Sodium 139.6 Potassium 3.82 Chloride 103.1 Carbon Dioxide 29.2 Anion Gap 11.12 BUN 17.3 Creatinine 1.00 Estimated GFR (MDRD) 74.00 BUN/Creatinine Ratio 17.30 Glucose 164.5 H Lactic Acid Calcium 9.71 Total Bilirubin 0.21 AST 23.5 ALT 18.2 Alkaline Phosphatase 45.7 L Total Creatine Kinase 186.7 H CK-MB (CK-2) 3.900 H CK-MB (CK-2) % 2.0800 Troponin I < 0.012 Total Protein 6.75 Albumin 3.98 Globulin 2.77 Albumin/Globulin Ratio 1.43 Procalcitonin TSH 2.160 Free T4 1.45 06/27/19 06/27/19 10:20 10:20 WBC RBC Hgb Hct MCV MCH MCHC RDW Coeff of [place] Plt Count Immature Gran % (Auto) Neut % (Auto) Lymph % (Auto) [place] % (Auto) Eos % (Auto) Baso % (Auto) Immature Gran # (Auto) Neut # (Auto) Lymph # (Auto) [place] # (Auto) Eos # (Auto) Baso # (Auto) Sodium Potassium Chloride Carbon Dioxide Anion Gap BUN Creatinine Estimated GFR (MDRD) BUN/Creatinine Ratio Glucose Lactic Acid 2.79 H Calcium Total Bilirubin AST ALT Alkaline Phosphatase Total Creatine Kinase CK-MB (CK-2) CK-MB (CK-2) % Troponin I Total Protein Albumin Globulin Albumin/Globulin Ratio Procalcitonin < 0.05 TSH Free T4 Orders Category Date Time Status EKG-(ED ONLY) Stat CARDIO 06/27/19 10:07 Completed Bladder [ED BLADDER SCAN] .ONCE EMERGENCY 06/27/19 10:08 Inactive ED IV/MEDIPORT/POWERPORT .ONCE EMERGENCY 06/27/19 10:07 Active BLOOD CULTURE (ED ONLY) Stat LAB 06/27/19 10:20 Received CBC W/ AUTO DIFF Stat LAB 06/27/19 09:40 Completed COMPREHENSIVE METABOLIC PANEL Stat LAB 06/27/19 09:40 Completed CREATINE KINASE Stat LAB 06/27/19 09:40 Completed FREE T4 (FREE THYROXINE) Stat LAB 06/27/19 09:40 Completed LACTIC ACID Stat LAB 06/27/19 10:20 Completed PROCALCITONIN Stat LAB 06/27/19 10:20 Completed THYROID STIMULATING HORMONE Stat LAB 06/27/19 09:40 Completed TROPONIN I Stat LAB 06/27/19 09:40 Completed URINALYSIS C & S IF INDICATED Stat LAB 06/27/19 10:07 Uncollected 0.9 % Sodium Chloride [Saline Flush] MEDS 06/27/19 10:07 Active 1 syr IVF PRN PRN [address] ABD/PEL WO RENAL STONE PROT Stat RADS 06/27/19 10:[address] CHEST W/O CONTRAST Stat RADS 06/27/19 10:08 Completed U/S VENOUS SCAN BILLIE LEGS Stat RADS 06/27/19 10:08 Completed Medications Generic Name Dose Route Start Last Admin Trade Name Freq PRN Reason Stop Dose Admin Sodium Chloride 1 syr 06/27/19 10:07 Saline Flush IVF PRN PRN To flush IV Vital Signs: Temp Pulse Resp BP Pulse Ox 06/27/19 09:18 96.5 F L 49 L 18 148/80 H 94 L Departure - Departure Time of Disposition: 13:07 (NOTE: THIS PT HAS A MEGALOBLASCTIC ANEMIA .IN THE DIFFERENTIAL ARE B12, AND FOLATE DIFFICENCIES BUT MYLODYPASTIC SYNDROME SHOULD BE THOUGHT OF WELL. I SUGGEST FIRST TO RULE OUT THE VITAMIN DIFF ISSUES MENTIONED . MUST OBTAIN HOMOCYSTEINE AND METHYLMALONIC ACID LEVELS. IF THESE THESE ARE ARE NORMAL THEN HE SHOULD BE EVALUATED FOR THE M.D.S . ) Disposition: TSF SHORT-TRM HOSP Discharge Problem: Macrocytic anemia Anemia Qualifiers: Anemia type: unspecified type Qualified Code(s): D64.9 - Anemia, unspecified Condition: Good Pt referred to PMD for follow-up: Yes (LUIS LARIOS ) IPMP verified?: No Allergies/Adverse Reactions: Allergies No Known Allergies Allergy (Verified 06/27/19 09:33) Home Medications: Ambulatory Orders Gabapentin [Neurontin] 600 mg PO TID 11/04/15 Aspirin/Dipyridamole 25/200 mg [Aggrenox Capsule] 1 each PO BID 02/01/18 Baclofen 30 mg PO DAILY 02/01/18 Sertraline HCl [Zoloft] 200 mg PO BEDTIME 02/01/18 Trazodone HCl 200 mg PO BEDTIME 02/01/18 Morphine Sulfate [Ms Contin] 30 mg PO Q12HR 02/02/18 Tamsulosin HCl [Flomax] 0.4 mg PO DAILY #10 cap.er.24h 03/05/18 Hydrocodone/Acetaminophen [[place] 5-325 Tablet] 1 tab PO Q6HR PRN 10/07/18 Clonazepam 0.5 mg PO TID 10/13/18 Cholecalciferol (Vitamin D3) [Vitamin D] 800 unit PO BEDTIME 06/27/19 Diclofenac Sodium 75 mg PO BID 06/27/19 Divalproex Sodium 500 mg PO BEDTIME 06/27/19 Loperamide HCl [Loperamide] 2 mg PO DAILY 06/27/19 Pravastatin Sodium [Pravachol] 20 mg PO BEDTIME 06/27/19 Risperidone [Risperdal] 2 mg PO BID 06/27/19 Trazodone HCl 50 mg PO BEDTIME 06/27/19 Transfer Form Completed: Yes Disposition Discussed With: Patient, Family
== END 2019-06-27 13:47 | disposition short-term general hospital (02) ==
LOC: ED 09:17
DX: R07.9 Chest pain, unspecified (principal); R74.8 Abnormal levels of other serum enzymes; D64.9 Anemia, unspecified; R60.0 Localized edema; R53.1 Weakness; R33.9 Retention of urine, unspecified; I10 Essential (primary) hypertension; Z79.899 Other long term (current) drug therapy; Z86.73 Personal history of transient ischemic attack (TIA), and cerebral infarction without residual deficits; Z95.1 Presence of aortocoronary bypass graft; Z95.5 Presence of coronary angioplasty implant and graft; Z95.0 Presence of cardiac pacemaker; Z98.84 Bariatric surgery status
CPT/HCPCS: 36415; 80053; 82550; 82553; 83605; 84145; 84439; 84443; 84484; 85025; 87040; 93005; 93010; 99285

== ENCOUNTER 2019-06-27 13:47 | Outpatient (CLI) ==
[2019-06-27 09:23] VITALS: BMI 31.8
== END 2019-06-27 14:09 | disposition short-term general hospital (02) ==
LOC: AMBL 13:47
PROVIDERS: ATTEND Internal Medicine
DX: R07.9 Chest pain, unspecified (principal); R00.1 Bradycardia, unspecified